=== PATIENT | male | born 1950 | race Native Hawaiian/Other Pacific Islander ===

== ENCOUNTER 2018-02-01 08:46 | Outpatient (CLI) | payer OTHER | END 2018-02-01 22:53 | disposition home or self-care (01) | LOC: NM 08:46 | DX: I25.10 Atherosclerotic heart disease of native coronary artery without angina pectoris (principal); Z01.811 Encounter for preprocedural respiratory examination | CPT/HCPCS: A9500; J2785 ==

== ENCOUNTER 2021-10-31 12:24 | Inpatient (IN) | payer OTHER ==
[~2021-10-31] VITALS: Ht 175.3 cm; Wt 79.1 kg
[2021-10-31 13:56] LABS: PLATELET COUNT 151 K/uL (142-355)
[2021-10-31 14:23] LABS: POTASSIUM 6.8 mmol/L (3.6-5.2)
[2021-10-31 19:00] VITALS: BP 153/63; TEMP 97.8
[2021-10-31 20:00] VITALS: BP 132/56
[2021-10-31 21:00] VITALS: BP 131/55; BP 145/59; TEMP 98.6; Ht 175.3 cm; Wt 79.1 kg
[2021-10-31 22:00] VITALS: BP 139/54
[2021-10-31 23:00] VITALS: BP 135/52
[2021-11-01] VITALS (7 sets, daily range): BP systolic 138–148; BP diastolic 52–85; TEMP 98.6–98.8
[2021-11-01 00:32] LABS: PARTIAL THROMBOPLASTIN TIME 76.4 SECONDS (24.5-33.6)
[2021-11-01 05:01] LABS: PLATELET COUNT 149 K/uL (142-355)
[2021-11-01 05:28] LABS: POTASSIUM 5.3 mmol/L (3.6-5.2)
[2021-11-01] MEDS ORDERED: SANTYL250 UNIT/G TOP (08:24)
[2021-11-01] MEDS ORDERED: AMLODIPINE BESYLATE PO (08:27)
[2021-11-01] MEDS ORDERED: LIPITOR80 MG PO (08:28)
[2021-11-01] MEDS ORDERED: CITALOPRAM40 MG PO (08:29)
[2021-11-01] MEDS ORDERED: COLESEVELAM HY625 MG PO (08:30)
[2021-11-01] MEDS ORDERED: METO50TA63 PO (08:32)
[2021-11-01] MEDS ORDERED: PREGABALIN75 MG PO (08:32)
[2021-11-01] MEDS ORDERED: SODIUM BICAR650 MG PO (08:33)
[2021-11-01] MEDS ORDERED: TRAZODONE HYDRO50 MG PO (08:34)
[2021-11-01] MEDS ORDERED: TAMSULOSIN HYD0.4 MG PO (08:34)
[2021-11-01] MEDS ORDERED: D2000 ULTRA2000 UNIT PO (08:35)
[2021-11-01] MEDS ORDERED: PANTOPRAZOLE SO40 M1 PO (08:36)
[2021-11-01] MEDS ORDERED: CODEINE/APAP1 TA2 PO (08:38)
[2021-11-01] MEDS ORDERED: ROPINIROLE HYDRO3 MG PO (08:39)
[2021-11-01] MEDS ORDERED: DIFLUCAN50 MG PO (08:45)
[2021-11-01] MEDS ORDERED: SMZ-TMP DS1 TAB PO (08:46)
[2021-11-01] MEDS ORDERED: GLIP10TA55 PO (08:53)
[2021-11-01] MEDS ORDERED: AMOX875T8 PO (08:57)
[2021-11-01] MEDS ORDERED: HYDRALAZINE25 MG PO (09:01)
[2021-11-01] MEDS ORDERED: INSU100I2 SC (09:02)
[2021-11-01] MEDS ORDERED: LOKELMA10 GM PO (09:07)
[2021-11-01] MEDS ORDERED: VITAMIN C500 M7 PO (09:09)
[2021-11-01] MEDS ORDERED: ASPIR-8181 MG PO (09:10)
[2021-11-01] MEDS ORDERED: ZINC220 MG PO (09:10)
[2021-11-01] MEDS ORDERED: HYDROCODONE BIT1 TA1 PO (09:23)
[2021-11-01 18:24] LABS: PARTIAL THROMBOPLASTIN TIME 47.3 SECONDS (24.5-33.6)
[2021-11-02 01:08] LABS: PARTIAL THROMBOPLASTIN TIME 68.7 SECONDS (24.5-33.6)
[2021-11-02 02:03] LABS: PLATELET COUNT 129 K/uL (142-355)
[2021-11-02 02:04] LABS: POTASSIUM 4.4 mmol/L (3.6-5.2)
[2021-11-02 13:55] LABS: PARTIAL THROMBOPLASTIN TIME 53.1 SECONDS (24.5-33.6)
[2021-11-02 19:00] VITALS: BP 173/69; TEMP 98.1
[2021-11-02 19:12] LABS: PARTIAL THROMBOPLASTIN TIME 43.8 SECONDS (24.5-33.6)
[2021-11-02 21:00] VITALS: BP 171/58
[2021-11-02 22:00] VITALS: BP 156/58
[2021-11-02 23:00] VITALS: BP 156/55
[2021-11-03] VITALS (14 sets, daily range): BP systolic 139–170; BP diastolic 54–92; TEMP 98.2–99.6
[2021-11-03 06:46] LABS: PLATELET COUNT 121 K/uL (142-355)
[2021-11-03 06:56] LABS: POTASSIUM 3.9 mmol/L (3.6-5.2)
[2021-11-04] VITALS: BP 111/42; TEMP 99.8
[2021-11-04 05:42] LABS: PLATELET COUNT 132 K/uL (142-355)
[2021-11-04 08:00] VITALS: BP 166/58; TEMP 98.4
== END 2021-11-04 10:40 | disposition home or self-care (01) | DRG 871 ==
LOC: ICU 12:24 → MED/SURG 11-03 12:30
PROVIDERS: Emergency Medicine; Student in an Organized Health Care Education/Training Program; ADMIT Internal Medicine Endocrinology, Diabetes & Metabolism; ATTEND Internal Medicine Endocrinology, Diabetes & Metabolism
PROC: 5A1D70Z Performance of Urinary Filtration, Intermittent, Less than 6 Hours Per Day (ICD-10-PCS; principal; 2021-11-01)
PROC: 05H633Z Insertion of Infusion Device into Left Subclavian Vein, Percutaneous Approach (ICD-10-PCS; 2021-11-01)
DX: A41.89 Other specified sepsis (principal); J96.01 Acute respiratory failure with hypoxia; J18.8 Other pneumonia, unspecified organism; N17.8 Other acute kidney failure; J44.0 Chronic obstructive pulmonary disease with (acute) lower respiratory infection; J44.1 Chronic obstructive pulmonary disease with (acute) exacerbation; E87.5 Hyperkalemia; I25.10 Atherosclerotic heart disease of native coronary artery without angina pectoris; E78.49 Other hyperlipidemia; I95.89 Other hypotension; I48.0 Paroxysmal atrial fibrillation; E11.22 Type 2 diabetes mellitus with diabetic chronic kidney disease; I12.9 Hypertensive chronic kidney disease with stage 1 through stage 4 chronic kidney disease, or unspecified chronic kidney disease; N18.32 Chronic kidney disease, stage 3b; D63.8 Anemia in other chronic diseases classified elsewhere
CPT/HCPCS: 36415; 36600; 80053; 80074; 82728; 82805; 82947; 83540; 83550; 83735; 83970; 84100; 84132; 84484; 85014; 85018; 85027; 85610; 85730; 86850; 86900; 86901; 86922; 93005; 94640; 94660; 94664; 94760; A4377; J0456; J0610; J0696; J0885; J1644; J1815; J1940; J3475; J3490; J7060; P9016

== ENCOUNTER 2022-09-07 10:21 | Outpatient (CLI) | payer OTHER ==
[~2022-09-07 10:21] MED LIST: AMLODIPINE BESYLATE PO; AMOX875T8 PO; ASPIR-8181 MG PO; CITALOPRAM40 MG PO; CODEINE/APAP1 TA2 PO; COLESEVELAM HY625 MG PO; D2000 ULTRA2000 UNIT PO; DIFLUCAN50 MG PO; GLIP10TA55 PO; HYDRALAZINE25 MG PO; HYDROCODONE BIT1 TA1 PO; INSU100I2 SC; LIPITOR80 MG PO; LOKELMA10 GM PO; METO50TA63 PO; PANTOPRAZOLE SO40 M1 PO; PREGABALIN75 MG PO; ROPINIROLE HYDRO3 MG PO; SANTYL250 UNIT/G TOP; SMZ-TMP DS1 TAB PO; SODIUM BICAR650 MG PO; TAMSULOSIN HYD0.4 MG PO; TRAZODONE HYDRO50 MG PO; VITAMIN C500 M7 PO; ZINC220 MG PO
[2022-09-07 11:06] LABS: PLATELET COUNT 200 K/uL (142-355)
[2022-09-07 11:17] LABS: POTASSIUM 4.6 mmol/L (3.6-5.2)
== END 2022-09-07 19:39 | disposition home or self-care (01) ==
LOC: LAB 10:21
PROVIDERS: ATTEND Nurse Practitioner Family
DX: E78.2 Mixed hyperlipidemia (principal); E11.9 Type 2 diabetes mellitus without complications; N18.30 Chronic kidney disease, stage 3 unspecified; E55.9 Vitamin D deficiency, unspecified; I12.9 Hypertensive chronic kidney disease with stage 1 through stage 4 chronic kidney disease, or unspecified chronic kidney disease
CPT/HCPCS: 80053; 80061; 81002; 82043; 82306; 82570; 83036; 85027

== ENCOUNTER 2022-10-15 12:40 | Outpatient (CLI) | payer OTHER ==
[2022-10-15 13:37] LABS: PLATELET COUNT 216 K/uL (142-355)
[2022-10-15 13:47] LABS: POTASSIUM 4.8 mmol/L (3.6-5.2)
== END 2022-10-15 19:04 | disposition home or self-care (01) ==
LOC: LAB 12:40
PROVIDERS: ATTEND Student in an Organized Health Care Education/Training Program
DX: I12.9 Hypertensive chronic kidney disease with stage 1 through stage 4 chronic kidney disease, or unspecified chronic kidney disease (principal); N18.31 Chronic kidney disease, stage 3a; N17.9 Acute kidney failure, unspecified; E87.5 Hyperkalemia; D63.1 Anemia in chronic kidney disease; E11.21 Type 2 diabetes mellitus with diabetic nephropathy; E79.0 Hyperuricemia without signs of inflammatory arthritis and tophaceous disease; R80.8 Other proteinuria; N25.81 Secondary hyperparathyroidism of renal origin; E55.9 Vitamin D deficiency, unspecified; D50.8 Other iron deficiency anemias; E78.2 Mixed hyperlipidemia; R94.6 Abnormal results of thyroid function studies
CPT/HCPCS: 80053; 81002; 82306; 82570; 83735; 83970; 84100; 84156; 84550; 85027